=== PATIENT | male | born 1940 | race Caucasian/White ===

== ENCOUNTER 2016-10-04 09:50 | Day surgery (SDC) | payer OTHER ==
[2016-09-15 13:10] VITALS: BMI 29.0
--- NOTE | 2016-09-15 13:52 | PAT Medication Instructions ---
Service Date September 15, 2016. Current Home Medication List Aspirin (Aspirin Ec), 81 MG PO QAM Atorvastatin (Lipitor), 20 MG PO HS Carvedilol (Coreg), 6.25 MG PO BID Cetirizine (Zyrtec), 10 MG PO QAM Coenzyme Q10 (Ubidecarenone) (Coq10), 200 MG PO HS Fish Oil ([place]-3), 1 CAP PO BID Lisinopril (Zestril), 40 MG PO QAM Misc Natural Products (Osteo Bi-Flex Advanced Do), 1 TAB PO QPM Multivitamin (Multivitamin), 1 TAB PO HS PRN for RN Naproxen (Aleve), 220 MG PO PRN Ranitidine Hcl (Zantac), 150 MG PO PRN Medication Instructions For Your Scheduled Surgery Aspirin (Aspirin Ec), 81 MG PO QAM (stop one week prior to surgery per surgeon instructions) Naproxen (Aleve), 220 MG PO PRN (patient can check with surgeon for instructions ) - Hold the following medications 10 days prior to surgery: Misc Natural Products (Osteo Bi-Flex Advanced Do), 1 TAB PO QPM Coenzyme Q10 (Ubidecarenone) (Coq10), 200 MG PO HS Fish Oil ([place]-3), 1 CAP PO BID - Hold the following medications the morning of surgery: Lisinopril (Zestril), 40 MG PO QAM Cetirizine (Zyrtec), 10 MG PO QAM - Take the following medications the morning of surgery with a sip of water: Ranitidine Hcl (Zantac), 150 MG PO PRN Carvedilol (Coreg), 6.25 MG PO BID - Take the following medications as scheduled the night before surgery: Multivitamin (Multivitamin), 1 TAB PO HS PRN for RN Carvedilol (Coreg), 6.25 MG PO BID Atorvastatin (Lipitor), 20 MG PO HS If you have any questions please call us at [phone] or [phone] ( [place]) or [phone]
[~2016-10-04] VITALS: Ht 175.3 cm; Wt 87.0 kg
[~2016-10-04 09:50] MED LIST: ASPI81TA28 PO; ATOR-22 PO; CARV6.25 PO; CEFAZOLIN 2000 MG/60 ML D5W IV SCH; CETI10TA84 PO; COEN1CAP7 PO; LACTATED RINGER'S 1000ML 1,000 ML IV SCH; LISI40TA PO; MISCTAB78 PO; MULT-506 PO; NAPR1TAB9 PO; OMEG10007 PO; RANI150T3 PO
[2016-10-04 10:22] VITALS: BP 165/100; PULSE 59; TEMP 37.1; O2SAT 95; Ht 175.3 cm; Wt 87.0 kg
[2016-10-04] MEDS ORDERED: MIDAZOLAM HCL 1 MG/ML 2ML VIAL ONE (11:42)
[2016-10-04] MEDS ORDERED: ONDANSETRON INJ 2 MG/ML 2 ML VIAL ONE (11:42)
[2016-10-04] MEDS ORDERED: PROPOFOL IV EMULSION 10 MG/ML 20 ML VIAL IV ONE (11:42)
[2016-10-04] MEDS ORDERED: LIDOCAINE HCL 2% 2 ML VIAL (20MG/ML) ONE (11:42)
[2016-10-04] MEDS ORDERED: FENTANYL CITRATE INJ 50 MCG/1 ML 2 ML VIAL ONE (11:43)
[2016-10-04] MEDS ORDERED: BUPIVACAINE 0.5 % 5 MG/1 ML MPF 30ML VIAL ONE (12:37)
--- NOTE | 2016-10-04 12:44 | History & Physical Bridge Note ---
H&P Re-Evaluation Bridge Note: I have examined the patient, reviewed the History & Physical and in the interval since the performance of the History & Physical I have noted the following changes of clinical significance: No changes noted
[2016-10-04] MEDS ORDERED: ONDANSETRON INJ 2 MG/ML 2 ML VIAL IV PRN ×2 (12:45→14:45)
[2016-10-04] MEDS ORDERED: HYDROmorphone INJ 2 MG/ML SYR/VIAL IV PRN (12:45)
[2016-10-04] MEDS ORDERED: EpHEDrine SULFATE INJ 50 MG/ML AMP IV PRN (12:45)
[2016-10-04] MEDS ORDERED: PHENYLEPHRINE 100MCG/ML 5ML SYR IV PRN (12:45)
[2016-10-04] MEDS ORDERED: ATROPINE SULFATE 0.1 MG/ML 5ML SYR IV PRN (12:45)
[2016-10-04] MEDS ORDERED: EpHEDrine SULFATE INJ 50 MG/ML AMP ONE (13:42)
[2016-10-04] MEDS ORDERED: SODIUM CHLORIDE 0.9% 1000ML 1,000 ML IV SCH (14:34)
--- NOTE | 2016-10-04 14:34 | [facility] Post Operative Brief Note ---
Immediate Operative Summary Operative Date Oct 04, 2016. Pre-Operative Diagnosis Left Inguinal Hernia Post-Operative Diagnosis Left Inguinal Hernia Procedure(s) Performed Left Inguinal Hernia Repair Surgeon Dr. Isabel Vargas Expander Surgeon(s) Belinda Zee PA-C Estimated Blood Loss 5ML Findings See dictation Specimens NONE PER SURGEON DR. ISABEL VARGAS Drains None Anesthesia General Complication(s) None Disposition Recovery Room / PACU
[2016-10-04] MEDS ORDERED: MoRPHine SULFATE 4 MG/ML 1 ML CARP\\VIAL IV PRN (14:45)
[2016-10-04] MEDS ORDERED: OXYCODONE/ACETAMINOPHEN 5-325 TAB PO PRN (14:45)
--- NOTE | 2016-10-04 15:22 | Anesthesiology Progress Note ---
Anesthesia Post Op Note Date & Time Oct 04, 2016 at 15:13 Vital Signs Pain Intensity: 0 Vital Signs Past 12 Hours Date Time Temp Pulse Resp B/P (MAP) Pulse Ox O2 Delivery O2 Flow Rate FiO2 10/04/16 15:05 64 14 127/77 99 Mask 6 10/04/16 14:56 36.0 67 14 136/82 99 Mask 10 10/04/16 10:22 37.1 59 20 165/100 (121) 95 Room Air Notes Anesthetic Complications: Approximately half way through the case the patient went into A-Fib with a rate in the 50s and went from a-flutter/ fib to a junctional rhythm. He has no past history of atrial fibrillation. I discussed this with Dr. Vargas and with Dr. Smart, his data analytics chief scientist who confirmed that he has no history of atrial fibrillation. Dr. Smart stated that he will come to the PACU shortly to evaluate the patient. The patient will not be discharged from the hospital pending Dr. Smart's evaluation.
[2016-10-04 16:23] LABS: ALB/GLOB RATIO 1.1 (0.9-2); BUN/CREATININE RATIO 12.2 (10-20); CALCIUM 8.4 mg/dl (8.5-10.1); CREATININE 0.96 mg/dl (0.60-1.40); MAGNESIUM 2.2 mg/dl (1.8-2.4); POTASSIUM 3.8 mmol/L (3.5-5.1)
[2016-10-04 16:40] VITALS: BP 165/78; PULSE 63; TEMP 36.8; O2SAT 94
--- NOTE | 2016-10-04 16:41 | Anesthesiology Progress Note ---
Anesthesia Post Op Note Date & Time Oct 04, 2016 at 16:33 Vital Signs Pain Intensity: 0 Vital Signs Past 12 Hours Date Time Temp Pulse Resp B/P (MAP) Pulse Ox O2 Delivery O2 Flow Rate FiO2 10/04/16 16:25 63 16 131/78 98 Nasal Cannula 3 10/04/16 16:15 66 16 134/73 98 Nasal Cannula 3 10/04/16 16:05 65 16 144/74 97 Nasal Cannula 3 10/04/16 15:55 63 16 131/74 97 Nasal Cannula 3 10/04/16 15:45 59 16 124/82 97 Nasal Cannula 3 10/04/16 15:35 64 16 125/88 97 Nasal Cannula 3 10/04/16 15:25 70 18 115/72 97 Nasal Cannula 3 10/04/16 15:15 63 14 113/73 97 Nasal Cannula 3 10/04/16 15:05 64 14 127/77 99 Mask 6 10/04/16 14:56 36.0 67 14 136/82 99 Mask 10 10/04/16 10:22 37.1 59 20 165/100 (121) 95 Room Air Notes Mental Status: alert / awake / arousable, participated in evaluation Pt Amnestic to Procedure: Yes Nausea / Vomiting: adequately controlled Pain: adequately controlled Airway Patency, RR, SpO2: stable & adequate BP & HR: stable & adequate Hydration State: stable & adequate Anesthetic Complications: no major complications apparent Patient seen by cardiology Dr. Smart. Patient to be seen as an outpatient for a holter monitor and further workup and Dr. Smart stated patient did not warrant inpatient admission. Dr. Vargas in agreement. Patient to be transferred to phase 2 recovery.
--- NOTE | 2016-10-04 16:48 | Discharge Instructions ---
Discharge Instructions Date of Service Oct 04, 2016. Admission Reason for Admission: Left Inguinal Hernia Discharge Discharge Diagnosis / Problem: Same Discharge Goals Goal(s): Decrease discomfort Activity Recommendations Activity Limitations: per Instructions/Follow-up section Lifting Limitations: no more than 10 pounds (for 6 weeks) Shower/Bathe: tomorrow (y) . Instructions / Follow-Up Instructions / Follow-Up ACTIVITY RECOMMENDATIONS: * Walk as much as possible. * No heavy lifting (>10 lbs.) for 2 weeks. SPECIAL CARE INSTRUCTIONS: * Ice to hernia repair site on and off until bedtime tonight. * May shower in 24 hours. Let water run over area and pat dry. * Leave steri strips on for one week. * Call the surgeon's office with any questions or concerns - (ex. temperature higher than 101 degrees F, excessive bleeding or pain). MEDICATIONS: Resume previous medications unless instructed otherwise by your surgeon. * Ibuprofen 600 mg every 6 hours with food * Percocet 1 every 4 hours, as needed for pain FOLLOW UP VISIT: If not already scheduled, please call the office to schedule a two week follow- up appointment. Office number Current Hospital Diet Patient's current hospital diet: Discharge Diet Recommended Diet: Regular Diet Procedures Procedures Performed: Left Inguinal Hernia Repair Pending Studies Studies pending at discharge: no Medical Emergencies . Who to Call and When: Medical Emergencies: If at any time you feel your situation is an emergency, please call 911 immediately. . Non-Emergent Contact Non-Emergency issues call your: Primary Care Provider, Surgeon Call Non-Emergent contact if: your pain is worsening, wound has increased redness, wound has increased pain . "Provider Documentation" section prepared by Daniel Vargas. . VTE Core Measure Inpt VTE Proph given/why not?: Treatment not indicated
--- NOTE | 2016-10-04 16:51 | Cardiology Consultation ---
Cardiology Consultation Date of Consultation: Oct 04, 2016 History of Present Illness Zeus To is a 76 year old male seen in cardiology consultation per the request of Dr. Puentes of anesthesia for the evaluation of arrhythmia. The patient has a history of chronic coronary heart disease with remote coronary artery bypass grafting as outlined below as well as a past history of palpitations attributed to frequent premature ventricular contractions. He underwent elective left inguinal hernia repair today performed by Dr. Vargas. During the case, he was noted to have atrial fibrillation at 59 bpm on telemetry at 1340 hrs. Another rhythm strip performed at 1343 hrs. revealed atrial fibrillation versus atrial flutter at 43-50 bpm. The patient's blood pressure remained stable at right around 100 mmHg which is not far from his baseline. A third rhythm strip At 1455 while he is in the postanesthesia care unit revealed sinus rhythm with PVCs similar to his baseline EKG. In addition a 12-lead EKG had been performed in the postanesthesia care unit on 10/04/2016 at 1513 which was reviewed in the belly by the undersigned revealing sinus rhythm at 63 bpm with first-degree AV block and occasional PVCs. No significant ST changes were noted compared to his baseline EKG. I saw the patient in the postanesthesia care unit. His vital signs are stable. And he was in good spirits recovering well from hernia repair. History Past Medical History: 1. Chronic coronary artery disease status post coronary artery bypass grafting 4 in 1994 with STARR to LAD, SVG to diagonal, SVG to obtuse marginal 1 and SVG to obtuse marginal 2. 2. Most recent cardiac catheterization took place in April 2006 at [facility] revealing severe solomon vessel disease with patent STARR to LAD graft, patent vein graft to diagonal 1, patient didn't SVG to obtuse marginal 1, occluded fourth and graft which was to another obtuse marginal 3. Frequent PVCs 4. Abdominal aortic aneurysm, 4.2 cm in diameter, CT May 2016 5. Hypertension 6. Dyslipidemia 7. Hypertension 8. Obstructive sleep apnea for which he is on CPAP Past Surgical History: 1. Coronary artery bypass grafting 1994 as noted above 2. Cardiac catheterization 2005 3. Cataract extraction on both eyes performed in August and then September in 2011 4. Remote appendectomy 5. Right carpal tunnel surgery January 2016 6. Left carpal tunnel surgery April 2016 Social History: The patient lives at home, he is , his spouse is named Charisse. He quit cigarette smoking 1994 smoked 1.5 packs per day for 38 years Family History: Abdominal aortic aneurysm noted and sister Transient ischemic attack and sister Lung cancer in brother Review Of Systems See above for pertinent positives & negatives. A total of 10 systems reviewed and were otherwise negative. Allergies Coded Allergies: No Known Allergies (Unverified , 09/15/16) Medications Reported Home Medications Medications Dose Route/Sig Max Daily Dose Days Date Category Zyrtec (Cetirizine HCl) 10 Mg Tab 10 Mg PO QAM 09/15/16 Reported Osteo Bi-Flex Advanced Do ([facility] Natural Products) 1 Tab Tab 1 Tab PO QPM 09/15/16 Reported Zantac (Ranitidine HCl) 150 Mg Tab 150 Mg PO PRN 09/15/16 Reported Aleve (Naproxen) 220 Mg Tab 220 Mg PO PRN 09/15/16 Reported Multivitamin (Multivitamins) Tab 1 Tab PO HS PRN 09/15/16 Reported Coq10 (Coenzyme Q10 (Ubidecarenone)) 200 Mg Cap 200 Mg PO HS 09/15/16 Reported [place]-3 (Fish Oil) 1 Ea Cap 1 Cap PO BID 09/15/16 Reported Lipitor (Atorvastatin Calcium) 20 Mg Tab 20 Mg PO HS 09/15/16 Reported Coreg (Carvedilol) 6.25 Mg Tab 6.25 Mg PO BID 09/15/16 Reported Zestril (Lisinopril) 40 Mg Tab 40 Mg PO QAM 09/15/16 Reported Aspirin Ec (Aspirin) 81 Mg Tab 81 Mg PO QAM 09/15/16 Reported Physical Exam Vital Signs (Last 8hrs): Last 8 Hrs Date Time Temp Pulse Resp B/P (MAP) Pulse Ox O2 Delivery O2 Flow Rate FiO2 10/04/16 16:35 36.5 61 16 142/71 98 Nasal Cannula 3 10/04/16 16:25 63 16 131/78 98 Nasal Cannula 3 10/04/16 16:15 66 16 134/73 98 Nasal Cannula 3 10/04/16 16:05 65 16 144/74 97 Nasal Cannula 3 10/04/16 15:55 63 16 131/74 97 Nasal Cannula 3 10/04/16 15:45 59 16 124/82 97 Nasal Cannula 3 10/04/16 15:35 64 16 125/88 97 Nasal Cannula 3 10/04/16 15:25 70 18 115/72 97 Nasal Cannula 3 10/04/16 15:15 63 14 113/73 97 Nasal Cannula 3 10/04/16 15:05 64 14 127/77 99 Mask 6 10/04/16 14:56 36.0 67 14 136/82 99 Mask 10 10/04/16 10:22 37.1 59 20 165/100 (121) 95 Room Air General Appearance: Alert and Oriented x3. NAD. Head: Normocephalic Atraumatic. Eyes: PERRLA, EOMI, conjunctiva and sclera clear Neck: Supple. No carotid bruits noted. No JVD. No HJD. Respiratory: Breath sounds clear to auscultation bilaterally. No w/r/r. Cardiovascular: Reg rate and rhythm. S1 and S2 noted. No murmurs, rubs, gallops. PMI non displace. Abdomen: Normal bowel sounds, soft nontender. no abdominal bruits. Extremities: No edema, no clubbing or cyanosis. distal pulses 2/4 bilaterally. Neuro: No focal deficits. Psychiatric: Normal affect. Data Last 24 Hours Test 10/04/16 15:39 Sodium Level 146 mmol/L Potassium Level 3.8 mmol/L Chloride Level 108 mmol/L Carbon Dioxide Level 32 mmol/L Anion Gap 6.0 mmol/L Blood Urea Nitrogen 12 mg/dl Creatinine 0.96 mg/dl Est Creatinine Clear Calc Drug Dose 71.5 ml/min Estimated GFR () 88.6 Estimated GFR (Non- 76.5 BUN/Creatinine Ratio 12.2 Random Glucose 102 mg/dl Calcium Level 8.4 mg/dl Magnesium Level 2.2 mg/dl Total Bilirubin 0.6 mg/dl Aspartate Amino Transf (AST/SGOT) 18 U/L Alanine Aminotransferase (ALT/SGPT) 23 U/L Alkaline Phosphatase 56 U/L Total Protein 7.0 gm/dl Albumin 3.7 gm/dl Globulin 3.3 gm/dl Albumin/Globulin Ratio 1.1 EKG and telemetry findings as noted in history of present illness Pharmacologic nuclear stress test performed for preoperative risk stratification did 08/04/16: Findings are notable for a fixed apical and inferior perfusion defect with no superimposed ischemia, and a mildly reduced ejection fraction 40% Assessment & Plan Impression: 76-year-old male 1. Status post elective left inguinal hernia repair 2. Transient atrial fibrillation/atrial flutter, controlled ventricular rate intraoperatively, currently back in sinus rhythm with PVCs which is his baseline rhythm 3. Stable chronic coronary heart disease Recommendations: Patient's chemistry panel stable with stable electrolytes including stable potassium stable magnesium and stable kidney function. The patient feels well. He is having no anginal symptoms. In his vital signs are normal at the present time. Patient is stable from my standpoint for discharge to home after elective hernia repair. I'm going to arrange further evaluation as an outpatient with an outpatient radiation monitor to assess for occult atrial arrhythmias. Future considerations include anticoagulation with a direct oral anticoagulant or Coumadin in addition to his aspirin, but we'll hold off on this for now given his postoperative state and will reassess after the monitor results are available. I discussed this plan with Dr. Vargas, the patient, and his spouse. Sachin Smart D.O.
[2016-10-04 17:10] VITALS: BP 160/84; PULSE 62; O2SAT 94
[2016-10-04 17:40] VITALS: BP 160/73; PULSE 68; TEMP 36.5; O2SAT 95
--- NOTE | 2016-10-04 21:45 | OPERATIVE REPORT ---
DATE OF OPERATION: 10/04/2016 PREOPERATIVE DIAGNOSIS: Left inguinal hernia. POSTOPERATIVE DIAGNOSIS: Left direct inguinal hernia. PROCEDURE: Repair of left direct inguinal hernia. SURGEON: Daniel Vargas MD. POWER SYSTEM ENGINEER: Tanja Zee PA-C. FINDINGS: The patient had a moderate-sized direct inguinal hernia that involved the entire floor of the canal. There was no indirect component. The cord structures were normal. TECHNIQUE: The patient was given a general anesthetic, and the area was prepped and draped in the usual sterile fashion. Left inguinal incision was made, carried down through the subcutaneous tissue to the external oblique fascia and the external ring. A small incision was made in the external oblique fascia. The underlying structures were off its undersurface and was opened through the external ring. The internal oblique fascia and the inguinal ligament were established. The ilioinguinal nerve was identified, from the cord structures and retracted medially. The cord structures were then elevated and isolated away from the floor of the canal at the level of the pubic tubercle and then away from the floor of the canal up to the internal ring. The hernia sac and some preperitoneal fat were then away from the cord until it is completely freed. It was then freed away from the russo of the canal and placed back into its anatomic position. The floor was then oversewn by approximating transversalis using a running 0 PDS. A piece of preformed inguinal hernia mesh was then placed in the floor of the canal and sewn to the anterior surface of the internal oblique medially, tissue over the pubic bone inferiorly and to the shelving border of the inguinal ligament laterally. The legs of the mesh were approximated to each other to create a new internal ring. The cord structures and ilioinguinal nerve which had been included with the cord structures prior to mesh were placed back into their anatomic position, and the external oblique was closed over them using a running 2-0 Vicryl. The subcutaneous tissue was closed with running 2-0 Vicryl. The superficial subcutaneous tissue was closed with running 3-0 Vicryl and the skin was closed with 4-0 Monocryl running subcuticular fashion. The skin was anesthetized with 0.5% Marcaine. An ilioinguinal block was performed with that same local. The skin was cleansed, dried, benzoin place, steri-Strips applied. Estimated blood loss was 5 mL. Sponge, needle and instrument counts were correct prior to closure. The patient tolerated the surgical procedure without complication and was transferred to Recovery. I attest to the content of the Intraoperative Record and any orders documented therein. Any exceptions are noted below. MTDD
[2016-11-26] MEDS ORDERED: FLAX12003 PO (15:03)
[2016-11-26] MEDS ORDERED: ACET1TAB84 PO (15:03)
[2016-11-26] MEDS ORDERED: ASPI81TA28 PO (15:03)
== END 2016-10-04 17:50 | disposition home or self-care (01) ==
LOC: C.ACU 09:50
PROVIDERS: ATTEND Surgery
DX: K40.90 Unilateral inguinal hernia, without obstruction or gangrene, not specified as recurrent (principal); G47.33 Obstructive sleep apnea (adult) (pediatric); I25.10 Atherosclerotic heart disease of native coronary artery without angina pectoris; I10 Essential (primary) hypertension; E78.5 Hyperlipidemia, unspecified; Z95.1 Presence of aortocoronary bypass graft; Z90.89 Acquired absence of other organs; Z98.41 Cataract extraction status, right eye; Z98.42 Cataract extraction status, left eye; Z68.29 Body mass index [BMI] 29.0-29.9, adult; Z98.890 Other specified postprocedural states; Z87.891 Personal history of nicotine dependence; Z79.82 Long term (current) use of aspirin

== ENCOUNTER → 2016-12-20 | Day surgery (SDC) | payer OTHER ==
[~2016-12-20] VITALS: Ht 170.2 cm; Wt 88.6 kg
[~2016-12-20] MED LIST changes: +ACET1TAB84 PO; +ATROPINE SULFATE 0.1 MG/ML 5ML SYR IV PRN; +BUPIVACAINE 0.5 % 5 MG/1 ML MPF 30ML VIAL ONE; +EpHEDrine SULFATE 50MG/5ML SYR ONE; +EpHEDrine SULFATE INJ 50 MG/ML AMP IV PRN; +EpHEDrine SULFATE INJ 50 MG/ML AMP ONE; +FENTANYL CITRATE INJ 50 MCG/1 ML 2 ML VIAL IV PRN; +FENTANYL CITRATE INJ 50 MCG/1 ML 2 ML VIAL ONE; +FLAX12003 PO; +HYDROmorphone INJ 1 MG/ML SYR IV PRN; +LIDOCAINE HCL 1% 20 ML VIAL ONE; +LIDOCAINE HCL 2% 2 ML VIAL (20MG/ML) ONE; +MIDAZOLAM HCL 1 MG/ML 2ML VIAL ONE; +MoRPHine SULFATE 4 MG/ML 1 ML CARP\\VIAL IV PRN; -NAPR1TAB9 PO; -OMEG10007 PO; +ONDANSETRON INJ 2 MG/ML 2 ML VIAL IV PRN; +ONDANSETRON INJ 2 MG/ML 2 ML VIAL ONE; +OXYCODONE/ACETAMINOPHEN 5-325 TAB PO PRN; +PROPOFOL IV EMULSION 10 MG/ML 20 ML VIAL IV ONE; +SODIUM CHLORIDE 0.9% 1000ML 1,000 ML IV SCH
[2016-12-20 05:41] VITALS: BP 152/100; PULSE 72; TEMP 36.7; O2SAT 93; Ht 170.2 cm; Wt 88.6 kg
--- NOTE | 2016-12-20 08:36 | [facility] Post Operative Brief Note ---
Immediate Operative Summary Operative Date Dec 20, 2016. Pre-Operative Diagnosis Right Inguinal Hernia Post-Operative Diagnosis Right Inguinal Hernia Procedure(s) Performed Open Right Inguinal Hernia Repair Surgeon Dr. Daniel Vargas Power Lineman Technician Surgeon(s) Tanja Zee PA-C Estimated Blood Loss 5ml Findings See dictation Specimens none per surgeon Dr. Daniel Vargas Drains None Anesthesia General Complication(s) None Disposition Recovery Room / PACU
--- NOTE | 2016-12-20 08:39 | Discharge Instructions ---
Discharge Instructions Date of Service Dec 20, 2016. Admission Reason for Admission: Right Inguinal Hernia Discharge Discharge Diagnosis / Problem: Same Discharge Goals Goal(s): Decrease discomfort Activity Recommendations Activity Limitations: per Instructions/Follow-up section Lifting Limitations: no more than 10 pounds (for 6 weeks) Shower/Bathe: tomorrow (shower only) . Instructions / Follow-Up Instructions / Follow-Up ACTIVITY RECOMMENDATIONS: * Walk as much as possible. * No heavy lifting (>10 lbs.) for 2 weeks. SPECIAL CARE INSTRUCTIONS: * Ice to hernia repair site on and off until bedtime tonight. * May shower in 24 hours. Let water run over area and pat dry. * Leave steri strips on for one week. * Call the surgeon's office with any questions or concerns - (ex. temperature higher than 101 degrees F, excessive bleeding or pain). MEDICATIONS: Resume previous medications unless instructed otherwise by your surgeon. * Ibuprofen 600 mg every 6 hours with food * Percocet 1 every 4 hours, as needed for pain FOLLOW UP VISIT: If not already scheduled, please call the office to schedule a two week follow- up appointment. Office number Current Hospital Diet Patient's current hospital diet: Discharge Diet Recommended Diet: Regular Diet Procedures Procedures Performed: Open Right Inguinal Hernia Repair Pending Studies Studies pending at discharge: no Medical Emergencies . Who to Call and When: Medical Emergencies: If at any time you feel your situation is an emergency, please call 911 immediately. . Non-Emergent Contact Non-Emergency issues call your: Primary Care Provider, Surgeon Call Non-Emergent contact if: your pain is worsening, wound has increased redness, wound has increased pain . "Provider Documentation" section prepared by Daniel Vargas. . VTE Core Measure Inpt VTE Proph given/why not?: Treatment not indicated
--- NOTE | 2016-12-20 09:30 | Anesthesiology Progress Note ---
Anesthesia Post Op Note Date & Time Dec 20, 2016 at 09:29 Vital Signs Pain Intensity: 0 Vital Signs Past 12 Hours Date Time Temp Pulse Resp B/P (MAP) Pulse Ox O2 Delivery O2 Flow Rate FiO2 12/20/16 09:20 69 16 131/69 97 Room Air 12/20/16 09:10 68 16 151/80 97 Oxymask 10 12/20/16 09:00 67 16 136/75 97 Oxymask 12/20/16 08:51 36.6 72 16 146/86 97 Oxymask 12/20/16 05:41 36.7 72 18 152/100 (117) 93 Room Air Notes Mental Status: alert / awake / arousable, participated in evaluation Pt Amnestic to Procedure: Yes Nausea / Vomiting: adequately controlled Pain: adequately controlled Airway Patency, RR, SpO2: stable & adequate BP & HR: stable & adequate Hydration State: stable & adequate Anesthetic Complications: no major complications apparent
[2016-12-20 09:35] VITALS: BP 112/73; PULSE 66; TEMP 36.7; O2SAT 93
[2016-12-20 10:05] VITALS: BP 153/82; PULSE 63; O2SAT 95
--- NOTE | 2016-12-20 10:32 | OPERATIVE REPORT ---
DATE OF OPERATION: 12/20/2016 PREOPERATIVE DIAGNOSIS: Right inguinal hernia. POSTOPERATIVE DIAGNOSIS: Right direct inguinal hernia. PROCEDURE: Repair of right direct inguinal hernia. SURGEON: Dr. Daniel Vargas. AMBULANCE OPERATIONS SUPERVISOR: Tanja Zee. FINDINGS: The patient has had a direct inguinal hernia that involved the entire floor of the canal. There was no indirect component. The cord structures were normal. There were no incarcerated contents. TECHNIQUE: The patient was given a general anesthetic and the area was prepped and draped in the usual sterile fashion. Right inguinal incision was made, carried down through the subcutaneous tissue until the external oblique could be identified. The external ring was identified. A small incision was made in the external oblique. The underlying structures were off its undersurface and it was opened through the external ring. Ilioinguinal nerve was seen draped over the cord structures. It was isolated and retracted laterally. The cord structures were then mobilized at the pubic tubercle elevated. I was able to encircle the cord structures with a Ninfa drain. The direct hernia sac was then away from the cord structures, working from inferior to superior and once I had the cord structures isolated up to the internal ring, I then was able to further establish the floor of the canal by dividing attachments of the sac to the russo of the canal. I then placed the sac back into its anatomic position. I oversewed the floor of the canal by reapproximating the transversalis using a running 0 PDS. There was a small lipoma of the cord protruding from the internal ring, which admitted just the tip of my finger. A lipoma of the cord was away from the cord structures, clamped just inside the internal ring, amputated and was ligated with a 2-0 Vicryl tie. There was no indirect sac identified. A piece of mesh was placed in the floor of the canal and sewn to the anterior surface of the internal oblique medially, tissue over the pubic bone inferiorly and to the shelving border of the inguinal ligament laterally. The mesh legs were approximated to each other with vertical mattress sutures in order to recreate a new internal ring and all of the mesh suturing was done with 0 PDS. The cord structures were placed back into their anatomic position and the external oblique was closed over them using a running 2-0 Vicryl. The deep subcutaneous tissue was closed with running 2-0 Vicryl. The superficial subcutaneous tissue was closed with running 3-0 Vicryl and the skin was closed with 4-0 Monocryl in a running subcuticular fashion. An ilioinguinal block was performed with 0.5% Marcaine and the skin at the incision site was anesthetized with that same local. The skin was cleansed, dried, benzoin placed and Steri-Strips applied. The estimated blood loss was 5 mL. Sponge, needle and instrument counts were correct prior to closure. The patient tolerated the surgical procedure without complication and was transferred to recovery. I attest to the content of the Intraoperative Record and any orders documented therein. Any exception s are noted below.
[2016-12-20 10:35] VITALS: BP 156/83; PULSE 76; TEMP 36.7; O2SAT 94
== END | disposition home or self-care (01) ==
LOC: C.ACU 05:12
PROVIDERS: ATTEND Surgery
DX: K40.90 Unilateral inguinal hernia, without obstruction or gangrene, not specified as recurrent (principal); I10 Essential (primary) hypertension; I25.10 Atherosclerotic heart disease of native coronary artery without angina pectoris; I25.2 Old myocardial infarction; E66.9 Obesity, unspecified; E78.5 Hyperlipidemia, unspecified; G47.30 Sleep apnea, unspecified; Z90.49 Acquired absence of other specified parts of digestive tract; Z79.82 Long term (current) use of aspirin; Z95.1 Presence of aortocoronary bypass graft